=== PATIENT | female | born 1965 | race Caucasian/White ===

== ENCOUNTER → 2017-09-22 | Outpatient (CLI) | payer OTHER | LOC: CIMAGING 07:34 | PROVIDERS: ATTEND Nurse Practitioner | DX: Z12.31 Encounter for screening mammogram for malignant neoplasm of breast (principal) | CPT/HCPCS: G0202 ==

== ENCOUNTER 2018-10-24 15:31 | Emergency (ER) | payer OTHER ==
[2018-10-24] MEDS ORDERED: IPRATROPIUM/ALBUTEROL 3 ML DEYVIAL IH ONE (17:36)
--- NOTE | 2018-10-24 17:49 | EDPHY ---
H & P Time Seen by Provider: 10/24/18 15:44 HPI/ROS: CHIEF COMPLAINT: Shortness of breath and chest pain. HISTORY OF PRESENT ILLNESS: Patient states she was in [place] yesterday when she developed dizziness, shortness of breath, tightness in her chest. She had flown to [place] on for a movie screening of"the mule"a film by Benton Coreas. She states she felt well most of her time there until early Wednesday morning. She had some dizziness that is described as feeling"fainty". She denies spinning sensation or syncope. She was able to sleep and felt well in the morning until about 10:00 a.m.. She noticed when she was walking out of the hotel that she felt suddenly short of breath with tightness in her chest. There was some dizziness again at that time and she states that the discomfort was about 5/10. She described as needing to work to take a deep breath. She states that"did not feel right". She flew home and arrived in [place] around 5: 00 p.m. On Wednesday. She was able to sleep last night and today symptoms returned. She took Xanax and used her albuterol inhaler several hours prior to arrival. She states that none of these helped. About 35 min prior to arrival she felt sweaty and came in for evaluation. She describes the discomfort as about 2 or 3 out of 10. She also states she has a mild headache. She states she has never had sensation like this before with her anxiety. She describes the headache is mild and not as bad as migraines. She states there is some radiation to the right shoulder and she has some left arm numbness as well. She denies wheezing, nausea, vomiting, back pain or leg pain. She denies recent illnesses. REVIEW OF SYSTEMS: Constitutional: No fever, no chills. Eyes: No discharge. No vision changes. ENT: No sore throat. no URI symptoms. Cardiovascular: Per HPI. No DORANTES, no exercise intolerance. Respiratory: No cough, no wheezing, shortness of breath present. Gastrointestinal: No abdominal pain, no vomiting. Genitourinary: No dysuria. Musculoskeletal: No back pain. Skin: No rashes. Neurological: Mild headache, no weakness, numbness, speech changes. General Appearance: Alert, no distress. Eyes: Pupils equal and round no pallor or injection. ENT, Mouth: Mucous membranes moist. Respiratory: There are no retractions, lungs are clear to auscultation. Cardiovascular: Regular rate and rhythm. Gastrointestinal: Abdomen is soft and nontender, no masses, bowel sounds normal. Neurological: Awake, alert, cranial nerves intact. Normal strength and sensation throughout. Skin: Warm and dry, no rashes. Musculoskeletal: Neck is supple nontender. Extremities are symmetrical, full range of motion, no edema. Psychiatric: Patient is oriented X 3, there is no agitation. Medical/surgical history: History of anxiety, ulcerative colitis, surgeries include hysterectomy, tumor removed from fibula, breast reduction. Social history: No tobacco or drugs. Occasional alcohol. Family history includes father who of heart disease at the age of 33. Paternal grandfather with heart disease at a young age. Smoking Status: Never smoked Constitutional: Initial Vital Signs Temperature (C) 36.6 C 10/24/18 15:33 Heart Rate 72 10/24/18 15:33 Respiratory Rate 16 10/24/18 15:33 Blood Pressure 107/77 10/24/18 15:33 O2 Sat (%) 97 10/24/18 15:33 O2 Delivery Mode Room Air Allergies/Adverse Reactions: mesalamine [From Lialda] Allergy (Verified 10/24/18 15:38) Pt reports joint stiffness Sulfa (Sulfonamide Antibiotics) [Sulfa(Sulfonamide Antibiotics)] Allergy ( Verified 10/24/18 15:38) Pt unsure of reaction, reaction as a child Home Medications: Medication Instructions Recorded Lexapro 03/16/15 Xanax 03/16/15 Albuterol 10/24/18 Vivelle-Dot 0.025MG (*) 10/24/18 Medical Decision Making - Diagnostics EKG Interpretation: EKG performed for shortness of breath and chest pain. EKG shows normal sinus rhythm with normal rate, normal intervals, normal axis. No ST T-wave changes to suggest ischemia or infarct. Impression normal EKG. Repeat EKG shows no change from prior. Impression normal EKG. Imaging Results: Imaging Impressions Chest X-Ray 10/24/18 16:03 Impression: Normal chest. ED Course/Re-evaluation: Multiple re-evaluations without change. No increased shortness of breath or chest pain. Patient resting comfortably. 5:25 p.m. reviewed results of all tests with patient and discussed the heart score. Shared decision making confirmed patient's willingness to stay for 2nd troponin EKG. She is low risk with a heart score of 2. 6:05 p.m. patient states shortness of breath and chest tightness gone after DuoNeb. States feels better. 6:45 p.m. repeat troponin and EKG negative. Reassessment of patient still feeling better. Understands follow-up and return precautions. Stable for discharge. Differential Diagnosis: Differential diagnosis includes but is not limited to acute coronary syndrome, pulmonary embolism, pneumonia, viral syndrome, reactive airways disease. After evaluation suspect reactive airways disease as the etiology of her symptoms. No evidence of other cardiopulmonary pathology. Vital signs stable/ patient is afebrile, patient never hypoxic. Given patient's age and familial risk factors will have her follow up with Cardiology for further evaluation as indicated. Also recommended follow-up with primary care physician. Return precautions reviewed and understood. Stable for discharge. - Data Points Laboratory Results: 10/24/18 10/24/18 10/24/18 18:35 16:40 16:03 POC Hgb 13.9 gm/dL gm/dL (12.6-16.3) POC Hct 41 % % (38-47) POC Sodium 141 mEq/L mEq/L (135-145) POC Potassium 3.7 mEq/L mEq/L (3.3-5.0) POC Chloride 101 mEq/L mEq/L (97-110) POC Total CO2 POC BUN 9 mg/dL mg/dL (7-23) POC Creatinine 0.9 mg/dL mg/dL (0.6-1.0) POC Glucose 89 mg/dL mg/dL (70-100) POC Calcium POC Total Bilirubin 0.5 mg/dL mg/dL (0.1-1.4) POC GGT < 5 IU/L L IU/L (5-65) POC AST 28 IU/L IU/L (14-46) POC ALT 11 IU/L IU/L (9-52) POC Alk Phosphatase 53 IU/L IU/L (38-126) POC Troponin I 0.00 ng/mL ng/mL (0.00-0.08) POC Total Protein 6.5 g/dL g/dL (6.3-8.2) POC Albumin 3.5 g/dL g/dL (3.5-5.0) POC Amylase 60 IU/L IU/L (30-110) 10/24/18 10/24/18 15:53 15:49 POC Hgb POC Hct POC Sodium 144 mEq/L mEq/L (135-145) POC Potassium 3.1 mEq/L L mEq/L (3.3-5.0) POC Chloride 104.0 mEq/L mEq/L (97-110) POC Total CO2 29 mEq/L mEq/L (22-31) POC BUN 9 mg/dL mg/dL (7-23) POC Creatinine 1.0 mg/dL mg/dL (0.6-1.0) POC Glucose 94 mg/dL mg/dL (70-100) POC Calcium 9.6 mg/dL mg/dL (8.5-10.4) POC Total Bilirubin POC GGT POC AST POC ALT POC Alk Phosphatase POC Troponin I 0.00 ng/mL ng/mL (0.00-0.08) POC Total Protein POC Albumin POC Amylase Medications Given: Discontinued Medications Albuterol/Ipratropium (Duoneb) 3 ml IH EDNOW ONE Stop: 10/24/18 17:37 Last Admin: 10/24/18 17:45 Dose: 3 ml Point of Care Test Results: CBC CBC Collection Date 10/24/18 CBC Collection Time 15:47 WBC 5.4 RBC 4.66 HGB 13.8 HCT 41.5 PLT 221 Neut # 3.6 Neut 67.1 LYMPH # 1.5 LYMPH 27.3 Other WBC # 0.3 Other WBC 5.6 MCV 89.1 Chemistry 10/24/18 10/24/18 10/24/18 18:35 16:40 16:03 POC Sodium 141 mEq/L mEq/L (135-145) POC Potassium 3.7 mEq/L mEq/L (3.3-5.0) POC Chloride 101 mEq/L mEq/L (97-110) POC Total CO2 POC BUN 9 mg/dL mg/dL (7-23) POC Creatinine 0.9 mg/dL mg/dL (0.6-1.0) POC Glucose 89 mg/dL mg/dL (70-100) POC Calcium POC Total Bilirubin 0.5 mg/dL mg/dL (0.1-1.4) POC GGT < 5 IU/L L IU/L (5-65) POC AST 28 IU/L IU/L (14-46) POC ALT 11 IU/L IU/L (9-52) POC Alk Phosphatase 53 IU/L IU/L (38-126) POC Troponin I 0.00 ng/mL ng/mL (0.00-0.08) POC Total Protein 6.5 g/dL g/dL (6.3-8.2) POC Albumin 3.5 g/dL g/dL (3.5-5.0) POC Amylase 60 IU/L IU/L (30-110) 10/24/18 10/24/18 15:53 15:49 POC Sodium 144 mEq/L mEq/L (135-145) POC Potassium 3.1 mEq/L L mEq/L (3.3-5.0) POC Chloride 104.0 mEq/L mEq/L (97-110) POC Total CO2 29 mEq/L mEq/L (22-31) POC BUN 9 mg/dL mg/dL (7-23) POC Creatinine 1.0 mg/dL mg/dL (0.6-1.0) POC Glucose 94 mg/dL mg/dL (70-100) POC Calcium 9.6 mg/dL mg/dL (8.5-10.4) POC Total Bilirubin POC GGT POC AST POC ALT POC Alk Phosphatase POC Troponin I 0.00 ng/mL ng/mL (0.00-0.08) POC Total Protein POC Albumin POC Amylase ISTAT H&H 10/24/18 16:40 POC Hgb 13.9 gm/dL gm/dL (12.6-16.3) POC Hct 41 % % (38-47) Basic Metabolic Panel BMP Collection Date 10/24/18 BMP Collection Time 15:47 D-Dimer D-Dimer Collection Date 10/24/18 D-Dimer Collection Time 15:47 D-Dimer (ng/ml) < 100 Liver Function Tests LFT Collection Date 10/24/18 LFT Collection Time 15:47 Departure - Departure Clinical Impression: Chest pain Qualifiers: Chest pain type: unspecified Qualified Code(s): R07.9 - Chest pain, unspecified Dyspnea Qualifiers: Dyspnea type: unspecified Qualified Code(s): R06.00 - Dyspnea, unspecified Condition: Good Instructions: Chest Pain (ED), Dyspnea (ED) Additional Instructions: We have consulted with Cardiology to have you follow up for further evaluation. They should contact you regarding timing of appointment. Continue to use your medications at home as prescribed. If you have return or worsening of her symptoms please return to the emergency department. Otherwise follow up with her primary care physician in the next 7-10 days. Referrals: Samantha Jimenes NP [Primary Care Provider] - As per Instructions Johnie Sauer MD [Medical Doctor] - As per Instructions
[2018-10-24 19:02] VITALS: BP 112/70
--- NOTE | 2018-10-26 08:44 | CPEKG ---
Test Reason : OPEN Blood Pressure : / mmHG Vent. Rate : 070 BPM Atrial Rate : 069 BPM P-R Int : 120 ms QRS Dur : 094 ms QT Int : 399 ms P-R-T Axes : 014 063 009 degrees QTc Int : 431 ms Sinus rhythm Confirmed by Sofía Wilson ([id number]) on 10/26/2018 8:43:46 AM Referred By: Confirmed By:Sofía Wilson
--- NOTE | 2018-10-26 08:44 | CPEKG ---
Test Reason : OPEN Blood Pressure : / mmHG Vent. Rate : 069 BPM Atrial Rate : 068 BPM P-R Int : 116 ms QRS Dur : 093 ms QT Int : 407 ms P-R-T Axes : 022 060 032 degrees QTc Int : 436 ms Sinus rhythm Confirmed by Sofía Wilson ([id number]) on 10/26/2018 8:43:58 AM Referred By: Confirmed By:Sofía Wilson
== END 2018-10-24 18:55 | disposition home or self-care (01) ==
LOC: CED 15:31
DX: R07.9 Chest pain, unspecified (principal); R06.00 Dyspnea, unspecified
CPT/HCPCS: 71046-PO; 80048-PO; 80076-PO; 82150-PO; 82435-PO; 82565-PO; 82947-PO; 84132-PO; 84295-PO; 84484-ER; 84520-PO; 85014-PO

== ENCOUNTER → 2018-11-09 | Outpatient (CLI) | payer OTHER | END | disposition home or self-care (01) | LOC: CIMAGING 12:42 | PROVIDERS: ATTEND Nurse Practitioner | DX: N63.13 Unspecified lump in the right breast, lower outer quadrant (principal); Z98.890 Other specified postprocedural states | CPT/HCPCS: 76641-PO ==